=== PATIENT | female | born 1955 | race Two or more races ===

== ENCOUNTER 2023-08-04 08:00 | Day surgery (SDC) | payer OTHER ==
[~2023-08-04] VITALS: Ht 162.6 cm; Wt 54.4 kg
[~2023-08-04 08:00] MED LIST: ATACAND32 MG PO; CRESTOR20 MG PO; PROTONIX40 MG PO; SYNTHROID50 MCG PO
[2023-08-04] MEDS ORDERED: CEFAZOLIN SODIUM 1,000 MG VIAL ONE (12:09)
[2023-08-04] MEDS ORDERED: LIDOCAINE HCL/EPINEPHRINE 20 ML VIAL IJ ONE (13:11)
[2023-08-04] MEDS ORDERED: BUPIVACAINE HCL/PF 0.5% 1ML ONE (13:11)
[2023-08-04] MEDS ORDERED: LIDOCAINE HCL/EPINEPHRINE 10 ML VIAL IJ SCH (14:00)
[2023-08-04] MEDS ORDERED: CEFAZOLIN SODIUM 1,000 MG VIAL IV SCH (14:00)
[2023-08-04] MEDS ORDERED: BUPIVACAINE HCL/PF 0.5% 1ML IJ SCH (14:00)
== END 2023-08-04 18:00 | disposition home or self-care (01) ==
LOC: CIR.AMB 08:00
PROVIDERS: ATTEND Colon & Rectal Surgery
DX: R15.9 Full incontinence of feces (principal); N39.41 Urge incontinence; Z20.822 Contact with and (suspected) exposure to COVID-19; Z91.011 Allergy to milk products; Z91.02 Food additives allergy status
CPT/HCPCS: 64581; 95971; C1778

== ENCOUNTER 2023-08-18 06:54 | Day surgery (SDC) | payer OTHER ==
[2023-08-18] MEDS ORDERED: CEFTRIAXONE SODIUM 2,000 MG VIAL ONE (07:46)
[2023-08-18] MEDS ORDERED: METRONIDAZOLE/SODIUM CHLORIDE 500 MG/100 ML PIGGYBACK IV ONE ×2 (07:46→10:15)
[2023-08-18] MEDS ORDERED: LIDOCAINE HCL 1%/Epi 20ML VIAL IJ ONE ×2 (09:28→10:15)
[2023-08-18] MEDS ORDERED: BUPIVACAINE HCL/PF 0.5% 30ML ML ONE (09:28)
[2023-08-18] MEDS ORDERED: BUPIVACAINE HCL 30 ML VIAL IJ ONE (10:15)
[2023-08-18] MEDS ORDERED: CEFTRIAXONE SODIUM 2,000 MG VIAL IV ONE (10:15)
== END 2023-08-18 11:47 | disposition home or self-care (01) ==
LOC: CIR.AMB 06:54
PROVIDERS: ATTEND Colon & Rectal Surgery
DX: R15.9 Full incontinence of feces (principal); Z91.011 Allergy to milk products; Z20.822 Contact with and (suspected) exposure to COVID-19
CPT/HCPCS: 64590; 95971; C1767